=== PATIENT | female | born 1975 | race Caucasian/White ===

== ENCOUNTER 2021-01-13 21:34 | Observation (INO) | payer OTHER ==
[~2021-01-13] VITALS: Ht 162.6 cm; Wt 92.1 kg
[2021-01-13 21:51] VITALS: BP 119/73
[2021-01-13 22:14] LABS: BASOPHILS 0.2 % (0-2); HEMATOCRIT 32.6 % (36.0-48.0); HEMOGLOBIN 10.3 g/dL (12-16); IMMATURE GRANULOCYTES 0.3 % (0-5); LYMPHOCYTE ABS# 1.44 10x3/uL (1.18-3.74); MCH 27.8 pg (26.0-34.0); MCHC 31.6 g/dL (31.0-37.0); MCV 87.9 fL (80.0-100.0); MEAN PLATELET VOLUME 9.5 fL (7.4-10.4); MONOCYTES 4.7 % (2-11); NEUTROPHIL ABS# 7.58 10x3/uL (1.56-6.13); NEUTROPHILS 78.8 % (40-80); RBC 3.71 10x6/uL (4.00-5.40); RDW 13.9 % (11.5-14.5); WBC 9.6 10x3/uL (4.8-10.8)
[2021-01-13 22:16] LABS: PLATELET COUNT 378 10x3/uL (130-400)
[2021-01-13 22:19] LABS: APTT 26.2 SECONDS (22.8-39.4); CALC OSMOLALITY 276 mosm/kg (275-300); CALCIUM 9.2 mg/dL (8.5-10.1); CARBON DIOXIDE 28.7 mmol/L (21.0-32.0); CHLORIDE - SERUM 102 mmol/L (98-107); CREATININE - SERUM 0.8 mg/dL (0.6-1.3); GLUCOSE 94 mg/dL (74-106); INR 1.16 (0.85-1.17); POTASSIUM - SERUM 3.8 mmol/L (3.5-5.1); PROTIME 13.7 SECONDS (11.6-15.0); SODIUM 140 mmol/L (136-145); UREA NITROGEN 7 mg/dL (7-18); eGFR NON AFRICAN AMERICAN 82 mL/min (90-120)
[2021-01-13 22:34] LABS: ALBUMIN 3.9 g/dL (3.4-5.0); ALKALINE PHOSPHATASE 197 U/L (30-120); ALT (SGPT) 30 U/L (10-68); BILIRUBIN - TOTAL 0.32 mg/dL (0.2-1.3); CKMB 1.3 U/L (0.0-3.6); CREATINE KINASE 76 UL (21-215); LIPASE 80 U/L (73-393); PROTEIN - SERUM 8.1 g/dL (6.4-8.2); TROPONIN-I < 0.017 ng/mL (0.000-0.060)
--- NOTE | 2021-01-13 22:38 | NUR ---
URINE COLLECTED AND SENT TO THE LAB
[2021-01-13 22:48] LABS: BILIRUBIN NEGATIVE (NEGATIVE); KETONE NEGATIVE (NEGATIVE); NITRITE NEGATIVE (NEGATIVE); UROBILINOGEN NORMAL mg/dL (< 2)
[2021-01-13 22:50] LABS: BACTERIA MODERATE HPF (NONE SEEN); SQUAMOUS EPITHELIAL 0-5 HPF (0-4); WHITE CELLS - URINE 0-5 HPF (0-4)
--- NOTE | 2021-01-13 22:58 | NUR ---
REPORT GIVEN TO HENOK MALAVE
[2021-01-13 23:34] VITALS: BP 131/77
--- NOTE | 2021-01-13 23:49 | NUR ---
PT AMBULATED TO RESTROOM WITH NURSE ASSIST.
--- NOTE | 2021-01-14 00:22 | NUR ---
ANSWERED PT CALL LIGHT. PT GIVEN BLANKET. DENIES FURTHER NEEDS. CALL LIGHT IN REACH.
[2021-01-14 00:31] VITALS: BP 136/54
[2021-01-14 01:40] LABS: UDS - AMPHET NEGATIVE QUAL (NEGATIVE); UDS - BARB NEGATIVE QUAL (NEGATIVE); UDS - BENZO NEGATIVE QUAL (NEGATIVE); UDS - COCAINE NEGATIVE QUAL (NEGATIVE); UDS - OPIATE NEGATIVE QUAL (NEGATIVE); UDS - PCP NEGATIVE QUAL (NEGATIVE); UDS - THC NEGATIVE QUAL (NEGATIVE)
[2021-01-14] MEDS ORDERED: MOBIC7.5 MG PO (03:41)
[2021-01-14] MEDS ORDERED: PERCOCET 5-3251 TAB PO (03:42)
[2021-01-14] MEDS ORDERED: EFFEXOR75 MG PO (03:43)
[2021-01-14] MEDS ORDERED: SEROQUEL100 MG PO (03:43)
[2021-01-14] MEDS ORDERED: TOPROL XL50 MG PO (03:44)
[2021-01-14 04:00] VITALS: BP 136/79
[2021-01-14 04:54] VITALS: BP 151/82; BMI 34.9
[2021-01-14 07:00] VITALS: BP 132/46
[2021-01-14 09:30] LABS: CKMB 1.3 U/L (0.0-3.6); CREATINE KINASE 66 UL (21-215)
[2021-01-14 09:34] LABS: TROPONIN-I < 0.017 ng/mL (0.000-0.060)
[2021-01-14 11:30] VITALS: BP 131/55
[2021-01-14 12:52] VITALS: Ht 162.6 cm; Wt 92.1 kg
--- NOTE | 2021-01-14 12:52 | NUR ---
RECIEVED DC ORDER FOR PT. REMOVED PT'S PIV, DRESSING PLACED, CATHETER INTACT. DC INSTRUCTIONS AND MEDICATIONS REVIEWED WITH PATIENT. PT VERBALIZED UNDERSTANDING. PT DRESS IN PERSONAL CLOTHES, WAITING ON FAMILY TO PICK HER UP
--- NOTE | 2021-01-14 14:34 | NUR ---
PT REPORTS SHE CALLED HER FAMILY AND TOLD THEM NOT TO COME GET HER. SHE "FEELS WORSE" AND STATES SHE IS STAYING DISPITE AGREEING TO PERVIOUS DISCHARGE. SHE REQUESTS PAIN MEDICATION EACH TIME SOMEONE ENTERS THE ROOM. RN EXPLAINED TO MRS. WALDRON THAT THERE ARE NO ACTIVE ORDERS FOR HER DUE TO HER DISCHARGED STATUS. PT STATES "I WILL JUST TAKE MY OWN THEN". RN EXPLAINED TO PT THIS IS NOT ALLOWED BECUASE IF SHE IS READMITED RN WILL NOT BE ABLE TO GIVE PAIN MEDICATION DUE TO NOT KNOWING WHAT IS IN HER SYSTEM. PT STATED "I DONT CARE". DIRECTOR OF ALUMNI RELATIONS UPDATED, CLEVE BAXTER FOR [employer] NOTIFIED- HE WILL COME SPEAK WITH PT. PT REMAINS IN ROOM AT THIS TIME.
== END 2021-01-14 14:30 | disposition home or self-care (01) ==
LOC: D.ER 21:34 → OBSVTIME 01-14 02:35 → D.M2 01-14 02:35
PROVIDERS: Family Medicine; ADMIT Family Medicine; ATTEND Family Medicine
DX: R07.9 Chest pain, unspecified (principal); R10.9 Unspecified abdominal pain; D64.9 Anemia, unspecified

== ENCOUNTER 2021-01-14 15:08 | Emergency (ER) | payer OTHER ==
[~2021-01-14] VITALS: Ht 162.6 cm; Wt 92.3 kg
--- NOTE | ~2021-01-14 | EC ---
PATIENT:LANCE WALDRON DATE OF SERVICE: 01/14/21 SEX: F MEDICAL RECORD: [id number] DATE OF : 75 LOCATION:[facility] AGE OF PATIENT: 45 ADMISSION DATE: 01/14/21 REFERRING PHYSICIAN: INTERPRETING PHYSICIAN: PADDY DUMONT MD ECHOCARDIOGRAM REPORT ECHO CHARGES Date: CLINICAL DIAGNOSIS: ECHOCARDIOGRAPHIC MEASUREMENTS (adult normal given) AC root (d.<3.7cm) cm LV Septum d (<1.2 cm> cm Valve Excursion cm LV Septum (systole) cm Left Atria (s.<4.0cm> cm LVPW d(<1.2cm) cm RV (d.<2.3cm) cm LVPW (sytole) cm LV diastole(<5.6CM) cm MV E-F(>70mm/sec) cm LV systole cm LVOT Diameter cm MV exc.(>10mm) cm Est.ejection fraction (50-75%) % DOPPLER: LVIT cm/sec A cm/sec E cm/sec LA cm/sec RVSP mmHg LVOT cm/sec AOP1/2T m/s Asc. Ao cm/sec RVOT cm/sec RA cm/sec PA cm/sec AV Gradient Peak mmHg AV Mean mmHg AV Area cm MV Gradient Peak mmHg MV Mean mmHg MV Area cm COMMENTS: [employer]: Lehr Loader: MANDY# Pericardial Effusion DATE OF SERVICE: CLINICAL DIAGNOSIS: Chest pain. INTERPRETATION: Normal left ventricular chamber size and contractile function, ejection fraction 55% to 60%. FINDINGS: Left atrial chamber appears normal. Right atrial and right ventricular chamber size and function appears normal. Aortic valve appears normal. No aortic regurgitation or stenosis. Mitral valve appears normal. No ECHOCARDIOGRAM REPORT [id number] LANCE WALDRON mitral regurgitation. Tricuspid valve appears normal. Trace tricuspid regurgitation. Pulmonic valve appears normal. No pulmonary regurgitation. No pericardial effusion visualized. IMPRESSION: Normal left ventricular chamber size and contractile function with ejection fraction of 55% to 60%. TRANSINT:[id number] Voice Confirmation ID: [id number] DOCUMENT ID: [id number] PADDY DUMONT MD CC: [id number] DICTATION DATE: 01/14/21 1543 TELEPHONE SERVICE REPRESENTATIVE: 01/14/212027 [facility] ER 01/14/21 [id number] [place] [address]
[~2021-01-14 15:08] MED LIST: EFFEXOR75 MG PO; MOBIC7.5 MG PO; PERCOCET 5-3251 TAB PO; SEROQUEL100 MG PO; TOPROL XL50 MG PO
[2021-01-14 15:21] VITALS: Ht 162.6 cm; Wt 92.3 kg
[2021-01-14 16:52] VITALS: BP 142/70
== END 2021-01-14 16:53 | disposition home or self-care (01) ==
LOC: D.ER 15:08
DX: R07.9 Chest pain, unspecified (principal); I10 Essential (primary) hypertension